=== PATIENT | female | born 1930 ===

== ENCOUNTER 2017-09-06 15:05 | Emergency (ER) | payer SELFPAY ==
[2017-09-06 15:49] VITALS: RESP 18
[2017-09-06] MEDS ORDERED: Albuterol 0.083% Inhal Sol (2.5 mg/3 mL) UD INH STA (16:09)
--- NOTE | 2017-09-06 16:39 | C.PDOC ---
History Of Present Illness [id number] female presents to ED for complaints of worsening right lower back pain that began 2 weeks ago. Patient describes pain as localized and worsening intensity. Patient reports positive occasional numbness to her right hip/side of thigh. Denies associated weakness/ worsening when getting up from sitting or walking. Patient also denies trauma, UTI symptoms, fever, nausea, vomiting, decreased appetite, or Hx of chronic back pain. Patient states unknown antibiotics were finished to weeks ago, with no improvement. As per family, patient's mental status is unchanged. WORSENING R LOWER BACK PAIN X 2 WEEKS. LOCALIZED, WORSENING INTENSITY. +OCC NUMBNESS R HIP/SIDE OF THIGH. NO ASSOC WEAK/ WORSE W GETTING UP FROM SITTING, WALKING. NO TRAUMA. DENIES HO CHRONIC back pain. S/P UNK ABX FINISHED 2 WEEKS AGO, NO IMPROVE. NO UTI SX, FEVER, NV. DECR APPETITE, MENTAL STATUS UNCH PER FAMILY. EXAM MILD DIST NONTOXIC BACK NO CVAT; NO SPINAL TEND. +GEN TEND R LOWER BACK W REPRODUC PAIN W EXTENSION. ATRAUM. NEURO NO FOCAL DEF GAIT WNL SKIN NEG REMAINDER NEG Time Seen by Provider: 09/06/17 16:07 Chief Complaint (Nursing): Back Pain History Per: Patient, Family History/Exam Limitations: no limitations Onset/Duration Of Symptoms: Days (14) Current Symptoms Are (Timing): Still Present Quality Of Discomfort: "Pain", Other (Localized, worsening intensity) Previous Symptoms: Back Pain Associated Symptoms: None Recent travel outside of the [place]: No Past Medical History Reviewed: Historical Data, Nursing Documentation, Vital Signs Vital Signs: Last Vital Signs Temp 99.2 F 09/06/17 15:48 Pulse 68 09/06/17 15:48 Resp 18 09/06/17 15:48 BP 156/72 H 09/06/17 15:48 Pulse Ox 98 09/06/17 18:38 - Medical History PMH: Alzheimer's Disease, HTN, Osteoporosis Surgical History: No Surg Hx Family History: States: No Known Family Hx - Social History Hx Alcohol Use: No Hx Substance Use: No - Immunization History Hx Influenza Vaccination: No Review Of Systems Constitutional: Negative for: Fever, Chills Gastrointestinal: Negative for: Nausea, Vomiting, Diarrhea Genitourinary: Negative for: Vaginal Discharge Musculoskeletal: Positive for: Back Pain (right lower back ) Neurological: Positive for: Numbness (occasional of right hop and side of thigh ). Negative for: Weakness Physical Exam - Physical Exam Appears: Non-toxic, Other (Mild distress ) Skin: Normal Color, Warm, Dry Head: Atraumatic, Normacephalic Eye(s): bilateral: Normal Inspection, PERRL, EOMI Oral Mucosa: Moist Neck: Supple Chest: Symmetrical, No Tenderness Cardiovascular: Rhythm Regular Respiratory: Normal Breath Sounds, No Decreased Breath Sounds, No Rales, No Rhonchi, No Wheezing Back: No CVA Tenderness, No Paraspinal Tenderness Extremity: Tenderness (generalized to right lower bakc w reproducible pain with extension; atraumatic) Neurological/Psych: Oriented x3, Normal Speech, Normal Cognition, Other (no focal deficit) Gait: Steady ED Course And Treatment - Laboratory Results Result Diagrams: 09/06/17 16:53 09/06/17 16:53 O2 Sat by Pulse Oximetry: 98 (RA) Pulse Ox Interpretation: Normal - Other Rad LS SPINE X-Ray: Interpreted by Me (COMPRESSION FX OLD L2) R HIP X-Ray: Interpreted by Me (NEG) Reevaluation Time: 18:39 Reassessment Condition: Improved (IMPROVED ROM COMPARED TO INITIAL. PS FEELS BETTER. DC PAIN RX, ADVISED NEED FU PMD IF PERSIST SX) Medical Decision Making Medical Decision Making: Administered decadron, flexeril, toradol, and albuterol treatment. Ordered blood work, urinalysis and LS and hip/pelvis X-Ray. Disposition Counseled Patient/Family Regarding: Studies Performed, Diagnosis, Need For Followup, Rx Given - Disposition Referrals: [facility] [Outside] [facility] [Outside] Disposition: HOME/ ROUTINE Disposition Time: 18:40 Condition: IMPROVED Prescriptions: Cyclobenzaprine [Flexeril] 10 mg PO TID #15 tab Ibuprofen [Motrin] 400 mg PO QID #30 tab Lidocaine 5% [Lidoderm] 1 ea TD PRN PRN #10 patch PRN Reason: Pain, Moderate (4-7) Instructions: Low Back Pain (DC), Vertebral Compression Fracture (DC) Forms: [employer] (Yoruba) Print Language: KOREAN - Clinical Impression Clinical Impression: Low back pain, Compression fracture - Scribe Statement The provider has reviewed the documentation as recorded by the Oli Castro All medical record entries made by the Scribe were at my direction and personally dictated by me. I have reviewed the chart and agree that the record accurately reflects my personal performance of the history, physical exam, medical decision making, and the department course for this patient. I have also personally directed, reviewed, and agree with the discharge instructions and disposition.
[2017-09-06 16:56] LABS: HEMOGLOBIN 11.8 g/dL (11.0-16.0); MEAN CELL VOLUME 92.7 fL (81.0-99.0); MEAN CORPUSCULAR HEMOGLOBIN 31.4 pg (27.0-31.0); MEAN CORPUSCULAR HGB CONC 33.9 g/dL (33.0-37.0); MEAN PLATELET VOLUME 6.9 fL (7.2-11.7); RBC 3.77 Mil/uL (3.80-5.20); RED CELL DISTRIBUTION WIDTH 13.7 % (11.5-14.5); WHITE BLOOD COUNT 6.1 K/uL (4.8-10.8)
[2017-09-06 17:05] LABS: SQUAMOUS EPITHIAL 1 /hpf (0-5); URINE BACTERIA FEW (<OCC); URINE BILIRUBIN NEGATIVE (NEGATIVE); URINE BLOOD NEGATIVE (NEGATIVE); URINE CLARITY Hazy (Clear); URINE COLOR Yellow (YELLOW); URINE GLUCOSE (UA) NORMAL (Normal); URINE LEUKOCYTE ESTERASE 3+ Leu/uL (Negative); URINE PROTEIN NEGATIVE (NEGATIVE); URINE UROBILINOGEN NORMAL mg/dL (0.2-1.0)
[2017-09-06 17:08] LABS: BLOOD UREA NITROGEN 26 mg/dL (7-17); CALCIUM 9.2 mg/dl (8.6-10.4); GFR AFRICAN-AMERICAN > 60; GFR NON-AFRICAN AMERICAN 53
[2017-09-06 18:53] VITALS: BP 150/79; PULSE 71; TEMP 98.9; O2SAT 97
--- NOTE | 2017-09-07 12:12 | RAD ---
PROCEDURE: Pelvis right hip 09/06/2017. HISTORY: Right-sided back pain COMPARISON: No prior study available comparison however correlation made with concurrent radiographs of lumbar spine TECHNIQUE: AP view of the pelvis and frogleg lateral view right hip FINDINGS: No evidence of acute displaced fracture nor dislocation. Both femoral heads are appropriately located within the respective acetabula. Degenerative changes both hip joints. There are sclerotic changes also seen along the symphysis. SI joints appear patent and intact. Degenerative spondylosis of lower lumbosacral spine. Note also made of calcific densities within the soft tissues both buttocks. IMPRESSION: No acute displaced fracture nor dislocation. DJD both hip joints. See above discussion for additional details and findings
--- NOTE | 2017-09-07 12:15 | RAD ---
PROCEDURE: Radiographs of the Lumbar Spine. HISTORY: R BACK PAIN COMPARISON: No prior. FINDINGS: BONES: Chronic anterior wedge compression fracture of the L2 segment. Mild fish-mouth endplate deformities of the visualized lower thoracic segments. The remaining vertebral bodies otherwise exhibit normal stature. There is straightening of the normal lumbar lordosis. There is also a levoscoliosis centered at the L2-L3 level. Vertebral bodies otherwise exhibit normal alignment DISC SPACES: Multilevel degenerative spondylosis most notably affecting the L3-L4 level. Changes include varying degrees of disc space narrowing, endplate eburnation and anterolateral as well as posterior osteophyte formation former larger than latter. The facet joints hypertrophic L5-S1 through the L1-L2 levels in decreasing order of severity. OTHER FINDINGS: Vascular calcifications of the aorta and iliac arteries. 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 There is also straightening of the normal lumbar lordosis. Multilevel degenerative spondylosis as above
== END 2017-09-06 19:02 | disposition home or self-care (01) ==
LOC: C.ER 15:05
DX: M48.56XA Collapsed vertebra, not elsewhere classified, lumbar region, initial encounter for fracture (principal); M54.5 Low back pain
CPT/HCPCS: 72100; 73502; 80048; 81001; 85027; 87086; 96374; 96375; 99285; J1100; J1885